=== PATIENT | male | born 1975 | race Caucasian/White ===

== ENCOUNTER 2019-08-24 15:24 | Inpatient (IN) | payer OTHER, BC, MEDICAID ==
[~2019-08-24] VITALS: Ht 180.3 cm; Wt 47.6 kg
[2019-08-24 15:31] VITALS: BP 101/72
--- NOTE | 2019-08-24 15:38 | NUR ---
PATIENT WHEELCHAIR ASSISTED TO BED 4.
--- NOTE | 2019-08-24 15:40 | NUR ---
43/M BIB FAMILY C/O BILAT LOWER EXTREMETY CELLULITIS & STOMA INFLAMMATION/REDNESS SENT TO ER FROM DR. MCGARRY OFFICE FOR ADMIT DUE TO C/O BILAT LOWER EXTREMETY CELLULITIS & STOMA INFLAMMATION/REDNESS. PER PT, HE JUST HAD A NEW STOMA PLACED 08/08/19 AND PT WAS TOLD BY DR KNOTT THAT IT IS INFECTED. PT DENIES FEVER/N/V. REDNESS NOTED AROUND STOMA. ACTUAL STOMA IS COVERED WITH A DRESSING AT THIS TIME. HX: CELLULITIS, CHRONS DISEASE
[2019-08-24] MEDS ORDERED: cefTRIAXone 1,000 MG in DEXT 5% MINI-BAG PLUS 50 ML IV ONE (15:45)
[2019-08-24] MEDS ORDERED: cefTRIAXone 1,000 MG VIAL ONE (15:58)
[2019-08-24] MEDS: NACL 0.9% 1,000 ML IV SCH ×2 (16:19→17:33)
[2019-08-24] MEDS ORDERED: fentaNYL 0.05 MG/ML VIAL IVP ONE (16:30)
[2019-08-24 16:40] LABS: BASOPHILS % (AUTO) 0.1 % (0.0-2.0); HEMATOCRIT 31.9 % (36-52); HEMOGLOBIN 10.3 g/dL (12.0-18.0); LYMPHOCYTES # (AUTO) 0.2 K/uL (2.0-11.5); LYMPHOCYTES % (AUTO) 3.2 % (20.5-51.1); MEAN CORPUSCULAR HEMOGLOBIN 29 pg (27-31); MEAN CORPUSCULAR HGB CONC 32 g/dL (33-37); MEAN CORPUSCULAR VOLUME 89.2 fL (80-94); MONOCYTES # (AUTO) 0.2 K/uL (0.8-1.0); MONOCYTES % (AUTO) 3.1 % (1.7-9.3); NEUTROPHILS % (AUTO) 93.6 % (42.2-75.2); PLATELET COUNT (AUTO) 563 K/uL (140-450); RED BLOOD CELL COUNT(AUTO) 3.58 MIL/uL (4.20-6.10); WHITE BLOOD COUNT (AUTO) 5.4 K/uL (4.8-10.8)
[2019-08-24 17:10] LABS: ANION GAP 13.5 (8-16); CARBON DIOXIDE 26.5 mmol/L (21-32); CREATININE 0.4 mg/dL (0.7-1.3)
[2019-08-24 17:17] LABS: ALBUMIN 2.3 g/dL (3.4-5.0); TOTAL BILIRUBIN 0.4 mg/dL (0.0-1.0)
--- NOTE | 2019-08-24 17:32 | NUR ---
PT CAN'T PROVIDE URINE AT THIS TIME.
[2019-08-24] MEDS ORDERED: MORPHINE SULFATE 2 MG/ML SYR IVP PRN (17:35)
[2019-08-24] MEDS ORDERED: ACETAMINOPHEN 325 MG TAB PO PRN (17:35)
[2019-08-24] MEDS ORDERED: ONDANSETRON 4 MG/2 ML VIAL IM/IVP PRN (17:35)
[2019-08-24] MEDS ORDERED: DOCUSATE SODIUM 100 MG GELCAP PO PRN (17:35)
[2019-08-24] MEDS ORDERED: HYDROcodone/APAP 5/325 MG 1 TAB TAB PO PRN (17:35)
[2019-08-24] MEDS ORDERED: MAGN400S60 PO (18:04)
[2019-08-24 18:05] LABS: MAGNESIUM 1.7 mg/dL (1.8-2.4); PHOSPHORUS 2.3 mg/dL (2.5-4.9); THYROID STIMULATING HORMONE 1.56 uIU/mL (0.34-3.74)
[2019-08-24] MEDS ORDERED: SPIR25TA PO (18:06)
[2019-08-24] MEDS ORDERED: CITA40TA5 PO (18:07)
[2019-08-24] MEDS ORDERED: OSC500 PO (18:08)
[2019-08-24] MEDS ORDERED: FAMO-90 PO (18:09)
[2019-08-24] MEDS ORDERED: SUCR1TAB35 PO (18:10)
[2019-08-24] MEDS ORDERED: APIX5TAB PO (18:10)
[2019-08-24] MEDS ORDERED: ASCO500T45 PO (18:11)
[2019-08-24] MEDS ORDERED: LORA-476 PO (18:12)
[2019-08-24] MEDS ORDERED: MULT-153 PO (18:13)
[2019-08-24 18:19] LABS: PROTHROMBIN TIME 10.3 secs (10.8-13.4)
--- NOTE | 2019-08-24 18:25 | NUR ---
Patient will be admitted to care of DR MASON. Admited to TELE. Will go to room 105B. Belongings list completed. Report to SHOAIB CHOW.
--- NOTE | 2019-08-24 18:30 | NUR ---
RECEIVED PT FROM ED NURSE VITOR. PT IS AWAKE AND ALERT, C/O PAIN IN HIS BLE'S. PT'S BLE'S ARE NOTED TO BE INFLAMED AND SCARRED. COLOSTOMY NOTED ON THE L ABD, WITH LARGE AREA OF REDNESS AROUND IT. PT IS ON ROOM AIR. IV SITE NOTED ON THE L FA, 20 G. PATENT AND INTACT. MRSA SWAB TAKEN. VS ARE: BP 113/82, HR 90, O2 100%, TEMP 97.5, RR 20.
--- NOTE | 2019-08-24 18:40 | NUR ---
ADMINISTERED PRN DOSE OF IV MORPHINE FOR 9/10 BLE PAIN. NS IVF IS INFUSING PER MD ORDER.
[2019-08-24 19:15] VITALS: BP 113/82
--- NOTE | 2019-08-24 19:15 | NUR ---
ENDORSED PT TO VEGETABLE SORTER NURSE IN STABLE CONDITION.
--- NOTE | 2019-08-24 19:30 | NUR ---
RECEIVED BEDSIDE REPORT FROM AM SHIFT RN FOR PT'S CONTINUITY OF CARE. PT IS AAOX4, LYING DOWN RESTING, WITH NO SIGNS OF DISTRESS, PT WAS GIVEN PAIN MEDICATION AT 1837. PT IS ON ROOM AIR, ON WEEKEND ANCHOR, HAS LEFT FA 20G NS AT 60ML/HR. EXPLAINED TO PT THE PUBLIC FINANCE SPECIALIST ROUTINE, PT VERBALIZED UNDERSTANDING. SAFETY PRECAUTION IN PLACE. WILL MONITOR PT THROUGHOUT SHIFT.
[2019-08-24] MEDS: metroNIDAZOLE 500 MG/NS PREMIX 100 ML IV SCH (21:13)
--- NOTE | 2019-08-24 21:13 | NUR ---
HUNG IV ABX ORDERED. PT'S NEEDS MET AT THIS TIME.
[2019-08-24] MEDS ORDERED: HYDROmorphone 1 MG/ML AMP IVP SCH (21:30)
--- NOTE | 2019-08-24 21:33 | NUR ---
PT REQUESTED FOR DILAUDID FOR PAIN MEDICATION, NOTIFIED MD FOR ORDER. ADMINISTERED IVP ONCE PAIN MEDICATION LOUISE PO NEUTRA PHIS ORDERED. PT TEACHING GIVEN RE: MEDICATIONS. PT VERBALIZED UNDERSTANDING. WILL CONTINUE TO MONITOR PT.
[2019-08-24] MEDS ORDERED: SODIUM PHOS / POTASSIUM PHOS 1 PKT PDR PO SCH (22:00)
[2019-08-24 23:34] LABS: BARBITURATE, URINE NEG. ng/ml (NEG <=200); BENZODIAZEPINE, URINE NEG. ng/mL (NEG <=200); CANNABINOID, URINE NEG. ng/mL (NEG <=50); COCAINE, URINE NEG. ng/mL (NEG <=300); OPIATE, URINE NEG. ng/mL (NEG <=2000); PHENCYCLIDINE SCREEN,URINE NEG. ng/mL (NEG <=25)
[2019-08-25] VITALS: BP 104/80
[2019-08-25 00:09] LABS: APPEARANCE,URINE CLEAR (CLEAR); BILIRUBIN,URINE NEGATIVE (NEGATIVE); BLOOD, URINE NEGATIVE (NEGATIVE); COLOR,URINE YELLOW (YELLOW); LEUKOCYTE ESTERASE ,URINE NEGATIVE (NEGATIVE); NITRITE, URINE NEGATIVE (NEGATIVE); UGLUCOSE NEGATIVE (NEGATIVE)
[2019-08-25] MEDS: MORPHINE SULFATE 4 MG/ML SYR IVP PRN ×5 (01:07→23:22)
--- NOTE | 2019-08-25 01:07 | NUR ---
VS CHECKED AND CHARTED. PT C/O PAIN 04/01. ADMINISTERED PRN PAIN MEDICATION ORDERED. PT TEACHING GIVEN, AND RECOMMENDED TO USE NON-PHARMACOLOGICAL TECHNIQUES FOR PAIN RELIEF. WILL CONTINUE TO MONITOR PT.
--- NOTE | 2019-08-25 03:00 | NUR ---
ENDORSED PT TO ANOTHER RN FOR PT'S CONTINUITY OF CARE. PT IS CURRENTLY ASLEEP WITH NO SIGNS OF DISTRESS.
--- NOTE | 2019-08-25 03:15 | NUR ---
RECEIVED PT FROM MARTY RN PT IS AAOX4 S/P COLOSTOMY F AND COLON RESECTION FOR CROHNS DISEASE LAS AUGUST 08/2019 PT HAS CELLULITIS ON ABD AND STOMA,SURGICAL STRIPS INTACT INITIAL ASSESSMENT DONE, IV ON LEFT FA INFUSING WELL
--- NOTE | 2019-08-25 05:00 | NUR ---
SPONGE BATH GIVEN LINEN CHANGED, COLOSTOMY BAG CHANGED.
[2019-08-25] MEDS: metroNIDAZOLE 500 MG/NS PREMIX 100 ML IV SCH ×3 (05:19→20:11)
[2019-08-25] MEDS: NACL 0.9% 1,000 ML IV SCH ×2 (06:58→10:34)
[2019-08-25 07:04] LABS: HEMATOCRIT 30.7 % (36-52); MEAN CORPUSCULAR HEMOGLOBIN 29 pg (27-31); MEAN CORPUSCULAR HGB CONC 33 g/dL (33-37); MEAN CORPUSCULAR VOLUME 88.4 fL (80-94); PLATELET COUNT (AUTO) 597 K/uL (140-450); RED BLOOD CELL COUNT(AUTO) 3.47 MIL/uL (4.20-6.10); RED CELL DISTRIBUTION WIDTH 16.7 % (11.6-13.7); WHITE BLOOD COUNT (AUTO) 4.9 K/uL (4.8-10.8)
[2019-08-25 07:14] LABS: MAGNESIUM 1.7 mg/dL (1.8-2.4); PHOSPHORUS 2.7 mg/dL (2.5-4.9)
[2019-08-25 07:24] LABS: CREATININE 0.4 mg/dL (0.7-1.3); POTASSIUM 3.7 mmol/L (3.5-5.1)
--- NOTE | 2019-08-25 07:30 | NUR ---
RECEIVED PT AAOX4. NO SOB NOTED. NO C/O PAIN AT THIS TIME. IV TO LT FOREARM PATENT AND INTACT. CHEST CLEAR. DIMINISHED AIR ENTRY TO THE BASES. ABDOMEN SOFT, BOWEL SOUNDS PRESENT. WITH SURGICAL INCISION ON ABDOMEN, STERI STRIPS CLEAN DRY AND INTACT, WOUND OPEN TO AIR. LEFT ABDOMEN COLOSTOMY DRAINING WITH MODERATE SOFT STOOLS. BLE SLIGHTLY SWOLLEN, ELEVATED WITH PILLOW. INSTRUCTED PT TO CALL FOR ASSISTANCE, CALL LIGHT WITHIN REACH, VERBALIZED UNDERSTANDING.
[2019-08-25 07:31] LABS: CHOL/HDL RATIO 2.6 (1-4.5)
--- NOTE | 2019-08-25 07:41 | NUR ---
PT IS ENDORSED TODAY SHIFT NURSE FOR CONTINUE OF CARE
[2019-08-25 07:48] LABS: LYMPHOCYTES % (MANUAL) 27 % (20-46); MONOCYTES % (MANUAL) 9 % (5-12)
[2019-08-25 08:00] VITALS: BP 111/72
[2019-08-25 08:28] LABS: ANION GAP 12.8 (8-16); CARBON DIOXIDE 23.9 mmol/L (21-32)
--- NOTE | 2019-08-25 08:33 | NUR ---
PATIENT HAS BEEN SCREENED AND CATEGORIZED HIGH NUTRITION RISK. PATIENT WILL BE SEEN WITHIN 1-2 DAYS OF ADMISSION. 08/25/19-08/26/[address]
--- NOTE | 2019-08-25 11:40 | NUR ---
WOUND CARE EVALUATION NOTES: REASON FOR EVALUATION: ABDOMINAL COLOSTOMY SKIN EROSIONS SKIN ASSESSMENT DONE ON WITH THIS 43 Y/O MALE PATIENT ADMITTED TO [facility] WITH INITIAL DIAGNOSIS OF BLE CELLULITIS. PAST MEDICAL HX RECENT EXPLORATORY LAPAROTOMY, DECOMPRESSION OF BOWEL WITH PLACEMENT OF DIVERTING LOOP OSTOMY. ALL ABOVE INFORMATION WAS OBTAINED FROM THE ADMISSION H&P. AND PT. PT IS AAX4. DR. CONI DODSON AND DR. FAULKNER AT BED SIDE. DURING ASSESSMENT. POC DISCUSSED. WOUND AND COLOSTOMY CARE INSTRUCTIONS GIVEN WITH DEMONSTRATION. PT. VERBALIZES UNDERSTANDING. PLAN OF CARE DISCUSSED WITH PRIMARY RN INTEGUMENTARY: -BLE ERYTHEMA, WITH XEROSIS, SKIN INTACT, DRY SCABS TO LEFT KNEE -MID ABDOMINAL HEALED SCARS -LLQ ABDOMINAL COLOSTOMY, RETRACTED STOMA WITH 25MM IN DIAMETER, AMY-STOMA SKIN RED WITH MULTIPLE EROSIONS, SURROUNDING SKIN CONTACT DERMATITIS EXTEND TO GROIN AND HIP AREA RECOMMENDATIONS: -APPLY HYDRAGUARD TO BLE, LEFT GROIN AND HIP AREA BID AND LEAVE IT OPEN TO AIR -PAIN MID ABDOMINAL SCARS WITH BETADINE BID AND LEAVE IT OPEN TO AIR -OSTOMY CARE RECOMMENDATIONS: -HOME HEALTH TO FOLLOW UPON DISCHARGED -FOLLOW UP WITH SURGEON IN 7-10 DAYS UPON DISCHARGE -OSTOMY CARE PER PROTOCOL AND DURING OSTOMY CARE PLEASE FOLLOW INSTRUCTION BELOW: -CHECK AMY STOMA SKIN CONDITION EVERY TIME WAFER CHANGED Q 5 DAYS AND PRN IF DISPLACED -DUST STOMA POWDER TO EROSIONS AREA AND APPLY SKIN PREP TO AMY-OSTOMY SKIN - USE 2- PIECES JAMES OSTOMY DEVICES WITH 1 (25MM), CUT TO FIT THE STOMA EXACTLY. NO SKIN SHOWING. APPLY PRE-CUT WAFER TO OSTOMY AND ATTACHED POUCH TO WAFER. CHANGE WAFER Q5 DAYS. -EMPTY AND RINSE POUCH WHEN IT IS 1/3 FULL. CHANGE POUCH Q5 DAYS AND PRN IF LEAK -MAY DISCHARGE HOME WITH SUPPLIES FOLLOWIN COMPLETE 2 PIECES POUCH CHANGES 1 TUBE OF STOMA ADHESIVE PASTE 1 BOTTLE OF STOMA ADHESIVE POWDER 4 SKIN PREP ABOVE INSTRUCTION EXPLAINED AND DEMONSTRATED TO PT. PT. VERBALIZES UNDERSTANDING. PRIMARY RN CONTINUE TEACHING COLOSTOMY CARE. RECOMMENDATIONS DISCUSSED WITH PRIMARY RN. PLEASE CONTACT WOUND CARE NURSE FOR ANY QUESTIONS AND CHANGES IN SKIN CONDITION.
[2019-08-25] MEDS: HYDROmorphone 1 MG/ML AMP IVP SCH ×2 (12:59→20:12)
[2019-08-25] MEDS: GAUZE TP SCH (13:00)
[2019-08-25] MEDS: HYDRAGUARD CREAM TP SCH (13:00)
--- NOTE | 2019-08-25 13:39 | NUR ---
DISCHARGE PLANNIN43 YEAR OLD MALE PATIENT FROM HOME, WHO CAME IN DUE TO PAIN IN THE FEET FOR 8 DAYS. PAST MEDICAL AND SURGICAL HISTORY INCLUDE CROHN DISEASE AND SUBTOTAL COLECTOMY WITH COLOSTOMY, SUBSEQUENT LYSIS OF ADHESION IN JUL 2019. INITIAL DIAGNOSIS OF STOMA INFECTION AND LOWER LEG CELLULITIS. CURRENT LABS INCLUDE WBC 4.9, H/H 10.0/30.7, NA/K 134/3.7 AND MAG 1.7. URINE AND BLOOD C/S PENDING. CXR SHOWED MILD PATCHY OPACITY OF THE RIGHT LUNG. KUB SHOWED ILEUS OR LARGE BOWEL OBSTRUCTION. ON ROCEPHIN. SURGICAL CONSULT WITH DR. KNOTT. DC PLAN PENDING ON PATIENT'S RESPONSE TO TREATMENT. Addendum: 08/26/19 at 0849 by Brooklynn Roman CM DC PLANNING SEEN BY SURGEON DR DODSON ,RECOMMENDED NO FURTHER SURGICAL NEEDS , WILL NEED REFERRAL TO GI OUTPATIENT. CONTINUE IVF AND ROCEPHIN AND SEEN BY [employer] CLERK CONTINUE SOFT DIET TOLERATED. DC PLAN PATIENT SHOULD BE ABLE TO CONTINUE WITH SOFT LOW FIBER DIET AND ENSURE BID UPON DISCHARGE AND WOUND CARE RECOMMENDATIONS. CM TO FOLLOW Addendum: 08/26/19 at 1120 by Brooklynn Roman CM DC PLANNING: I RECEIVED A CALL FROM PT'S MOTHER RACHEL ADDRESSED HER CONCERN THAT SHE IS UNABLE TO TAKE CARE OF HIM AT THIS TIME AND PREFERRED HIM TO GO TO SNF FOR FURTHER THERAPY, AFTER HE GETS HIS STRENGTH BACK WOULD LIKE TO TAKE HIM BACK TO HER HOUSE. NOTIFIED DR VAZQUEZ HER CONCERN AND PROVIDE HER NUMBER [phone] . PER RACHEL SHE WANTED HER SON TO GO TO [facility] WHERE HE WAS THERE BEFORE , CLOSEST TO HER HOME AND ABLE TO VISIT HIM FREQUENTLY AND WAS SATISFIED WITH THEIR CARE. THE AD[address] [id number] . PHONE # [phone] . CM TO FOLLOW Addendum: 08/26/19 at 1325 by Brooklynn Roman CM DC PLANNING FAXED ALL THE PAPERWORK TO [phone]. CM TO FOLLOW Addendum: 08/28/19 at 1648 by Kerrie Bright LATE ENTRY: RECEIVED AN ORDER FOR DC TO SNF TODAY FOR IV ANTIBIOTIC. CONTACTED MANJULA HILL AT [phone] REGARDING DC PLAN. SHE PROVIDED ME WITH LIST OF SNF'S TO SEND REFERRALS. REFERRAL SENT TO [facility], [facility], [place], [facility], [facility], [facility], , [facility] AND [facility]. WILL FOLLOW UP. Addendum: 08/28/19 at 1722 by Kerrie Bright CM RECEIVED A CALL FROM [facility], SHE STATED THE FACILITY SHOULD BE CONTRACTED WITH [facility]. I ASKED IF [facility] IS CONTRACTED WITH THEM. SHE STATED TO HAVE THE FACILITY CALL HER AND SHE WILL PROVIDE AUTHORIZATION. CONTACTED [facility] BRITO, PER NICOLAS INTAKE THEY ARE ABLE TO TAKE THE PATIENT AND WILL GO TO ROOM [address] BANKS. SHE ALSO STATED CAN SET UP TRANSPORT WITH [facility] BILLED TO THEM. CONTACTED [facility] AT [phone], ABLE TO SPEAK TO GENO. PLATE GRAINER IS BETWEEN 1830 TO 1930. PRIMARY RN RUSSELL AND DR. GO MADE AWARE.
--- NOTE | 2019-08-25 13:48 | NUR ---
UMA Assessment/Discharge Plan Basic Screen: Yes Name: Ashley Jones Home Relationship: mother Pre-Admission Living Arrangements: Lives with Other Other: Ashley Jones Prior ADL Needs Assistance Current Home Health Name/Tel: patient does not recall name of home health company Current Name/Tel: N/A Current Hospice Name/Tel: N/A Current Dialysis Name/Tel: N/A Healthcare Decision Maker: Patient Advance Directive No Information Taught: Advance Directive Person Taught: Patient Teaching Tools: Computer Generated Print Verbal Factors Affecting Learning: None Participation Level: Active Evaluation: Gestures Understanding Verbalizes Understanding Educator: UMA Littlejohn Discipline: Case Mgt/Social Svcs Tentative Discharge Plan Summary: Patient is a 43 year old male admitted for stoma infection and lower leg cellulitis. I met with patient at bedside. Patient alert and oriented x4. Patient lives alone, however, he has been staying at his mother Ashley's home after his surgery. He follows up with his pcp regularly and does not have any difficulty filling his prescriptions at pharmacy. He does not recall name of [employer] [facility] that has been providing services for him. He has a hx of depression. He denied SI and HI. He drives himself to pcp's office. He denied alcohol/substance abuse. Venetian Blind Machine Operator and/or Yard Coupler will follow up as needed. Signature: UMA Littlejohn Date: Aug 25, 2019
--- NOTE | 2019-08-25 15:04 | NUR ---
08/25/19 RD INITIAL ASSESSMENT COMPLETED PLEASE REFER TO NUTRITION ASSESSMENT UNDER CARE ACTIVITY FOR ESTIMATED NUTRITIONAL NEEDS. 1. CONTINUE SOFT DIET TOLERATED 2. RECOMMENDED ENSURE BID, MULTIVITAMIN DAILY, IRON SUPPLEMENTATION AND VITAMIN C 3. IF PO INTAKE IS <50% CONSIDER PARENTERAL NUTRITION 4. RD TO FOLLOW-UP 2-3 DAYS, HIGH RISK [address] RD
[2019-08-25 16:00] VITALS: BP 105/72
[2019-08-25] MEDS ORDERED: MAGNESIUM OXIDE 400 MG TAB PO SCH (17:00)
--- NOTE | 2019-08-25 17:55 | NUR ---
pt eating dinner, on soft diet, tolerated well. no n&v noted.
--- NOTE | 2019-08-25 19:15 | NUR ---
RECEIVED BEDSIDE REPORT FROM AM SHIFT RN FOR PT'S CONTINUITY OF CARE. PT IS AAOX4, PT C/O 06/01 PAIN, WILL MEDICATE. PT IS ON ROOM AIR, ON PARKING ASSISTANT, HAS LEFT FA 20G NS AT 60ML/HR. EXPLAINED TO PT THE IT PROFESSIONAL ROUTINE, PT VERBALIZED UNDERSTANDING. SAFETY PRECAUTION IN PLACE. BED IN LOW POSITION, CALL LIGHT WITHIN REACH. WILL MONITOR PT THROUGHOUT SHIFT.
--- NOTE | 2019-08-25 19:25 | NUR ---
PT RESTING. NO SOB NOTED. NO COMPLAINTS MADE. ENDORSED TO NEXT SHIFT NURSE FOR CONTINUITY OF CARE.
[2019-08-25] MEDS: APIXABAN 2.5 MG TAB PO SCH (20:21)
--- NOTE | 2019-08-25 20:21 | NUR ---
GIVEN FLAGYL, DILAUDID, ELIQUIS, AND HEPARIN MD ORDERED, PT TOLERATED WELL.
--- NOTE | 2019-08-25 23:22 | NUR ---
PT C/O ABD PAIN 10/10, GIVEN MORPHINE MD ORDERED, PT TOLERATED WELL.
[2019-08-26] VITALS: BP 106/72
[2019-08-26] MEDS: HYDRAGUARD CREAM TP SCH ×2 (01:42→13:08)
--- NOTE | 2019-08-26 01:43 | NUR ---
APPLIED HYDRAGUARD MD ORDERED, PT TOLERATED WELL.
[2019-08-26] MEDS: metroNIDAZOLE 500 MG/NS PREMIX 100 ML IV SCH ×3 (04:07→20:54)
[2019-08-26] MEDS: HYDROmorphone 1 MG/ML AMP IVP SCH (04:07)
--- NOTE | 2019-08-26 04:07 | NUR ---
PT C/O 06/01 ABD PIN, GIVEN DILAUDID AND FLAGYL MD ORDERED. PT TOLERATED WELL.
[2019-08-26 05:49] LABS: BASOPHILS % (AUTO) 0.3 % (0.0-2.0); EOSINOPHILS # (AUTO) 0.1 K/uL (0-0.4); EOSINOPHILS % (AUTO) 1.8 % (0.0-4.0); HEMOGLOBIN 9.7 g/dL (12.0-18.0); LYMPHOCYTES # (AUTO) 0.6 K/uL (2.0-11.5); LYMPHOCYTES % (AUTO) 15.5 % (20.5-51.1); MEAN CORPUSCULAR HEMOGLOBIN 29 pg (27-31); MEAN CORPUSCULAR HGB CONC 33 g/dL (33-37); MEAN CORPUSCULAR VOLUME 88.8 fL (80-94); MONOCYTES # (AUTO) 0.7 K/uL (0.8-1.0); MONOCYTES % (AUTO) 20.1 % (1.7-9.3); NEUTROPHILS # (AUTO) 2.3 K/uL (1.8-7.7); NEUTROPHILS % (AUTO) 62.3 % (42.2-75.2); PLATELET COUNT (AUTO) 515 K/uL (140-450); RED BLOOD CELL COUNT(AUTO) 3.38 MIL/uL (4.20-6.10); RED CELL DISTRIBUTION WIDTH 16.6 % (11.6-13.7); WHITE BLOOD COUNT (AUTO) 3.7 K/uL (4.8-10.8)
[2019-08-26 06:16] LABS: ANION GAP 7.4 (8-16); CARBON DIOXIDE 31.5 mmol/L (21-32); CREATININE 0.6 mg/dL (0.7-1.3); POTASSIUM 3.9 mmol/L (3.5-5.1)
[2019-08-26 06:18] LABS: MAGNESIUM 1.4 mg/dL (1.8-2.4)
--- NOTE | 2019-08-26 06:55 | NUR ---
PT LYING ON BED. NO ACUTE DISTRESS NOTED.
--- NOTE | 2019-08-26 07:05 | NUR ---
Received report from PM nurse. Pt is asleep, room air, NS running at 60 mls/hr, bed at lowest position, call light within reach.
[2019-08-26] MEDS: FERROUS SULFATE 325 MG TABEC PO SCH (07:30)
[2019-08-26] MEDS: MORPHINE SULFATE 4 MG/ML SYR IVP PRN ×4 (07:31→20:55)
--- NOTE | 2019-08-26 07:31 | NUR ---
Pt complained of 10/10 abdominal pain. PRN morphine administered. Will reassess.
[2019-08-26 08:00] VITALS: BP 106/73
[2019-08-26] MEDS ORDERED: FERROUS SULFATE 325 MG TABEC PO SCH (08:00)
--- NOTE | 2019-08-26 08:00 | NUR ---
Pt's colostomy bag overfilled with air and stool. Apply new colostomy bag. Provided sponge bath, changed linens, bed at lowest position, call light within reach.
--- NOTE | 2019-08-26 08:20 | NUR ---
Pt stated his pain is more tolerable at this time, but still at a 9/10. Will continue to monitor.
[2019-08-26] MEDS: CITALOPRAM 20 MG TAB PO SCH (09:02)
[2019-08-26] MEDS: MULTIVITAMIN/MINERALS 1 TAB PO SCH (09:03)
[2019-08-26] MEDS: ASCORBIC ACID 500 MG TAB PO SCH (09:03)
[2019-08-26] MEDS: APIXABAN 2.5 MG TAB PO SCH ×2 (09:04→21:01)
[2019-08-26] MEDS: predniSONE 10 MG TAB PO SCH (09:04)
[2019-08-26 09:06] LABS: FOLIC ACID 17.4 ng/mL (>3.0)
--- NOTE | 2019-08-26 11:59 | NUR ---
Pt is complaining of 10/10 abdominal pain. PRN morphine is administered. Will reassess within an hour.
--- NOTE | 2019-08-26 12:45 | NUR ---
Pt is asleep, FLACC 0. Will continue to monitor.
[2019-08-26] MEDS: NACL 0.9% 1,000 ML IV SCH (12:59)
[2019-08-26] MEDS: GAUZE TP SCH (13:08)
[2019-08-26] MEDS ORDERED: MAG SULF 2000 MG/WATER PREMIX 50 ML IV SCH (14:00)
--- NOTE | 2019-08-26 15:00 | NUR ---
Handoff report given to Fabiola CHOW. Pt resting in bed, no signs of distress.
--- NOTE | 2019-08-26 15:01 | NUR ---
RECEIVE REPORT FROM CLAUDINE GARDUNO. PT IS RESTING IN BED, NO SIGNS OF DISTRESS, UPDATE WHITE BOARD WITH NAME, SAFETY MEASURES IN PLACE
[2019-08-26 16:00] VITALS: BP 103/73
--- NOTE | 2019-08-26 16:32 | NUR ---
MEDICATED PT WITH MORPHINE FOR SEVER ABDOMEN 05/02, CRAMPING. EDUCATION GIVEN, PT VOCALIZE UNDERSTANDING. CALL LIGHT WITHIN REACH.
--- NOTE | 2019-08-26 16:39 | NUR ---
PT HAD 100ML OF STOOL REMOVED FROM COLOSTOMY BAG.
--- NOTE | 2019-08-26 16:40 | NUR ---
CHANGED COLOSTOMY BAG IT WAS LEAKING, PT WOUND SITE IS PINK, CLEANED THE AREA. PT TOLERATE CHANGE WELL. PT IS STABLE, CALL LIGHT WITHIN REACH.
--- NOTE | 2019-08-26 17:58 | NUR ---
PT SITTING UP IN BED, EATING, PT IS STABLE, NO SIGNS DISTRESS NOTED, CALL LIGHT WITHIN REACH.
--- NOTE | 2019-08-26 19:15 | NUR ---
GAVE REPORT TO NIGHT NURSE JERRI FOR CONTINUITY OF CARE, PT IS STABLE, EMPTY COLOSTOMY OF 300 MLS OF STOOL.
--- NOTE | 2019-08-26 19:20 | NUR ---
RECEIVED FROM AM RN IN BED . COLOSTOMY BAG IN PLACE. DX. OF INFECTED STOMA AND CELLULITIS BILATERAL LOWER EXTREMITIES. ABLE TO VERBALIZE SIMPLE NEEDS IN TRISTANIAN. CARE PLANS FOR THE NIGHT DISCUSSED WITH HIM AND RE-ORIENTED TO CALL LIGHT USE FOR HELP . NO SOB. DENIES PAIN AT THIS TIME. BED ALARM ON.
[2019-08-26 20:44] VITALS: BP 109/77
--- NOTE | 2019-08-26 22:30 | NUR ---
SLEEPING WELL. NO SOB. CALL LIGHT WITH IN REACH.
--- NOTE | 2019-08-27 00:48 | NUR ---
SLEEPING WELL POST MORPHINE MEDICATION GIVEN EARLIER IN SHIFT. ABLE TO VERBALIZE NEEDS WELL. PT. VITAL SIGNS TAKEN AT THIS TIME RT REQUESTED FOR MORPHINE IVP . WITH FRESH ABDOMINAL SCAR /SURGERY. CALL LIGHT WITH IN REACH AND ABLE TO USE IT.
[2019-08-27] MEDS: HYDRAGUARD CREAM TP SCH ×2 (00:51→13:15)
[2019-08-27] MEDS: MORPHINE SULFATE 4 MG/ML SYR IVP PRN ×6 (00:55→22:03)
[2019-08-27 01:06] VITALS: BP 106/76
--- NOTE | 2019-08-27 04:00 | NUR ---
PT. AWAKE AND REQUESTED FOR NEW COLOSTOMY BAG. ABLE TO VERBALIZE NEEDS WELL. KEPT CLEAN , DRY AND COMFORTABLE. NO ADVERSE REACTIONS NOTED FROM IV ABT'S ADMINISTERED.
[2019-08-27] MEDS: NACL 0.9% 1,000 ML IV SCH ×2 (05:50→21:28)
[2019-08-27] MEDS: metroNIDAZOLE 500 MG/NS PREMIX 100 ML IV SCH ×3 (06:02→20:19)
--- NOTE | 2019-08-27 06:55 | NUR ---
SLEEPING WELL MOST OF THE SHIFT. WAKES UP WHEN HE FEELS PAIN AND NEEDS MORPHINE IVP RT PAIN. COLOSTOMY BAG CHANGED 2 X THIS SHIFT . PT. ROM X 4. CLEAR SPEECH AND ABLE TO VERBALIZE NEEDS WELL. ABLE TO TURN SELF INDEPENDENTLY. ABLE TO USE CALL LIGHT FOR HELP. NEEDS MET THIS SHIFT. NO COMPLAINTS DONE.
[2019-08-27 07:12] LABS: BASOPHILS # (AUTO) 0.1 K/uL (0.00-0.22); BASOPHILS % (AUTO) 1.3 % (0.0-2.0); EOSINOPHILS # (AUTO) 0.1 K/uL (0-0.4); EOSINOPHILS % (AUTO) 2.3 % (0.0-4.0); HEMATOCRIT 30.9 % (36-52); LYMPHOCYTES # (AUTO) 0.9 K/uL (2.0-11.5); MEAN CORPUSCULAR HEMOGLOBIN 29 pg (27-31); MEAN CORPUSCULAR HGB CONC 32 g/dL (33-37); MEAN CORPUSCULAR VOLUME 88.6 fL (80-94); MONOCYTES # (AUTO) 0.7 K/uL (0.8-1.0); NEUTROPHILS # (AUTO) 2.3 K/uL (1.8-7.7); PLATELET COUNT (AUTO) 506 K/uL (140-450); RED BLOOD CELL COUNT(AUTO) 3.49 MIL/uL (4.20-6.10); RED CELL DISTRIBUTION WIDTH 16.6 % (11.6-13.7)
[2019-08-27 07:33] LABS: ANION GAP 11.2 (8-16); CARBON DIOXIDE 25.7 mmol/L (21-32); CREATININE 0.5 mg/dL (0.7-1.3); POTASSIUM 3.9 mmol/L (3.5-5.1)
[2019-08-27 07:40] LABS: MAGNESIUM 1.8 mg/dL (1.8-2.4); PHOSPHORUS 2.5 mg/dL (2.5-4.9)
[2019-08-27 07:55] LABS: LYMPHOCYTES % (AUTO) 22.2 % (20.5-51.1); MONOCYTES % (AUTO) 17.5 % (1.7-9.3); NEUTROPHILS % (AUTO) 56.7 % (42.2-75.2)
[2019-08-27 08:00] VITALS: BP_SYST 110; BP_DIAS 75; BP_DIAS 76
[2019-08-27] MEDS: FERROUS SULFATE 325 MG TABEC PO SCH (08:19)
[2019-08-27] MEDS: predniSONE 10 MG TAB PO SCH (08:20)
[2019-08-27] MEDS: ASCORBIC ACID 500 MG TAB PO SCH (08:20)
[2019-08-27] MEDS: CITALOPRAM 20 MG TAB PO SCH (08:20)
[2019-08-27] MEDS: APIXABAN 2.5 MG TAB PO SCH ×2 (08:20→20:23)
[2019-08-27] MEDS: MULTIVITAMIN/MINERALS 1 TAB PO SCH (08:20)
[2019-08-27] MEDS ORDERED: Z-GUARD PASTE TP ONE (11:30)
--- NOTE | 2019-08-27 11:46 | NUR ---
Colostomy bag leaking. Skin care provided & colostomy bag replaced & attached to drainage bag. Wound care provided. Pt denies any pain at this time. Will cont to monitor.
[2019-08-27] MEDS: Z-GUARD PASTE TP SCH (13:15)
[2019-08-27] MEDS: GAUZE TP SCH (13:15)
--- NOTE | 2019-08-27 13:30 | NUR ---
Pt in high fowlers in bed, eating dinner. No c/o discomfort, no signs of distress. Respirations even & nonlabored. Colostomy bag intact & draining liquid brown stool to drainage bag. No leaking noted.
--- NOTE | 2019-08-27 15:30 | NUR ---
Pt asleep in bed, respirations even & nonlabored in room air, no signs of distress. Call light within reach.
[2019-08-27 16:00] VITALS: BP 110/75
--- NOTE | 2019-08-27 19:15 | NUR ---
Report given to pm nurse Bharti.
--- NOTE | 2019-08-27 19:16 | NUR ---
RECEIVED REPORT FROM AM NURSE SHAAN. PATIENT ALERT AND ORIENTED X4. NO APPARENT DISTRESS NOTED. INTRODUCED SELF AND UPDATED BOARD. WITH PIV ON LEFT FOREARM 20G RUNNING IVF. WITH COLOSTOMY NOTED CONNECTED TO DRAINAGE BAG. BED ON LOW POSITION. BED ALARM ON. WILL CONTINUE TO MONITOR.
--- NOTE | 2019-08-27 20:00 | NUR ---
NOTED WITH LEAKING COLOSTOMY BAG. CHANGED PADS AND COLOSTOMY BAG. REPOSITIONED FOR COMFORT. WILL CONTINUE TO MONITOR.
--- NOTE | 2019-08-27 22:00 | NUR ---
NOTED COLOSTOMY BAG LEAKING. TURNED, REPOSITIONED AND CHANGED COLOSTOMY BAG. WILL CONTINUE TO MONITOR.
--- NOTE | 2019-08-27 23:47 | NUR ---
PATIENT ASLEEP IN BED. NO APPARENT DISTRESS NOTED. VISIBLE CHEST RISE AND FALL NOTED. WILL CONTINUE TO MONITOR.
[2019-08-28] VITALS: BP 102/71
[2019-08-28] MEDS: HYDRAGUARD CREAM TP SCH ×2 (01:03→13:13)
--- NOTE | 2019-08-28 01:35 | NUR ---
PATIENT ASLEEP IN BED. NO APPARENT DISTRESS NOTED. VISIBLE CHEST RISE AND FALL NOTED. WILL CONTINUE TO MONITOR.
[2019-08-28] MEDS: MORPHINE SULFATE 4 MG/ML SYR IVP PRN ×4 (02:58→15:48)
--- NOTE | 2019-08-28 03:20 | NUR ---
CHANGED COLOSTOMY BAG. REPOSITIONED AND TURNED FOR COMFORT. WOUND CARE DONE ORDERED. WILL CONTINUE TO MONITOR.
[2019-08-28] MEDS: metroNIDAZOLE 500 MG/NS PREMIX 100 ML IV SCH ×2 (05:03→13:12)
--- NOTE | 2019-08-28 05:15 | NUR ---
PATIENT ASLEEP IN BED. NO APPARENT DISTRESS NOTED. VISIBLE CHEST RISE AND FALL NOTED. WILL CONTINUE TO MONITOR.
[2019-08-28] MEDS ORDERED: METR250T2 PO ×3 (06:43→17:04)
[2019-08-28] MEDS ORDERED: CEPH250C16 PO (06:43)
[2019-08-28] MEDS ORDERED: PRED10TA5 PO (06:43)
--- NOTE | 2019-08-28 07:10 | NUR ---
ENDORSED TO AM SHIFT NURSE FOR CONTINUITY OF CARE.
--- NOTE | 2019-08-28 07:10 | NUR ---
RECEIVED REPORT FROM SUBJECT SCIENTIFIC RESEARCH NURSE DENNY. PT AWAKE, ORIENTED X4. IV ON LT FA 20 GA RUNNING IVF PER ORDER. RESPIRATIONS EVEN AND UNLABORED ON RA. ACTIVE BS, SOFT ABD, LBM 08/28, COLOSTOMY BAG IN PLACE EMPTY AND PATENT, STOMA IS PINK AND CLEAN. PT IS ON FALL RISK PRECAUTIONS, SAFETY MEASURES IN PLACE. REVIEWED POC WITH PT, PT VERBALIZED UNDERSTANDING.
[2019-08-28 08:00] VITALS: BP 113/69
[2019-08-28 08:20] LABS: ANION GAP 10.5 (8-16); CARBON DIOXIDE 23.4 mmol/L (21-32); CREATININE 0.4 mg/dL (0.7-1.3); POTASSIUM 3.9 mmol/L (3.5-5.1)
[2019-08-28 08:24] LABS: MAGNESIUM 1.6 mg/dL (1.8-2.4); PHOSPHORUS 2.1 mg/dL (2.5-4.9)
[2019-08-28] MEDS: FERROUS SULFATE 325 MG TABEC PO SCH (08:32)
[2019-08-28] MEDS: ASCORBIC ACID 500 MG TAB PO SCH (08:33)
[2019-08-28] MEDS: CITALOPRAM 20 MG TAB PO SCH (08:34)
[2019-08-28] MEDS: MULTIVITAMIN/MINERALS 1 TAB PO SCH (08:34)
[2019-08-28] MEDS: predniSONE 10 MG TAB PO SCH (08:34)
[2019-08-28 08:36] LABS: BASOPHILS % (AUTO) 0.7 % (0.0-2.0); EOSINOPHILS # (AUTO) 0.1 K/uL (0-0.4); EOSINOPHILS % (AUTO) 2.7 % (0.0-4.0); HEMATOCRIT 28.7 % (36-52); HEMOGLOBIN 9.3 g/dL (12.0-18.0); LYMPHOCYTES % (AUTO) 20.6 % (20.5-51.1); MEAN CORPUSCULAR HEMOGLOBIN 29 pg (27-31); MEAN CORPUSCULAR HGB CONC 33 g/dL (33-37); MEAN CORPUSCULAR VOLUME 88.3 fL (80-94); MONOCYTES # (AUTO) 0.6 K/uL (0.8-1.0); NEUTROPHILS # (AUTO) 2.9 K/uL (1.8-7.7); PLATELET COUNT (AUTO) 478 K/uL (140-450); RED BLOOD CELL COUNT(AUTO) 3.25 MIL/uL (4.20-6.10); RED CELL DISTRIBUTION WIDTH 16.6 % (11.6-13.7); WHITE BLOOD COUNT (AUTO) 4.6 K/uL (4.8-10.8)
[2019-08-28] MEDS: APIXABAN 2.5 MG TAB PO SCH (08:39)
--- NOTE | 2019-08-28 08:39 | NUR ---
ADMINISTERED MEDICATIONS PER ORDER, PT IS AWARE OF INDICATIONS AND POTENTIAL SIDE EFFECTS.
[2019-08-28] MEDS ORDERED: ROC2I IV (08:58)
[2019-08-28] MEDS ORDERED: MAG SULF 2000 MG/WATER PREMIX 50 ML IV SCH (09:30)
[2019-08-28] MEDS ORDERED: SODIUM PHOS / POTASSIUM PHOS 1 PKT PDR PO SCH (09:30)
--- NOTE | 2019-08-28 11:30 | NUR ---
PT C/O PAIN ON BILATERAL LEGS, WILL GIVE PAIN MEDICATION PER ORDER.
[2019-08-28] MEDS: GAUZE TP SCH (13:13)
[2019-08-28] MEDS: Z-GUARD PASTE TP SCH (13:13)
--- NOTE | 2019-08-28 13:20 | NUR ---
COLOSTOMY BAG CHANGED D/T LEAKING. SKIN AND AMY CARE DONE, PT TOLERATED WELL.
[2019-08-28] MEDS: NACL 0.9% 1,000 ML IV SCH (14:08)
--- NOTE | 2019-08-28 14:59 | NUR ---
PT GIVEN 2 SERVINGS OF JELLO PER REQUEST, PT HAS NO SIGNS OF DISTRESS AT THIS TIME.
[2019-08-28 16:00] VITALS: BP 103/71
--- NOTE | 2019-08-28 17:00 | NUR ---
PT HAS NO C/O PAIN AT THIS TIME. PT NOTIFIED THAT HE WILL BE TRANSFERRED TO [facility], PT IS AGREEABLE. WILL CONTINUE TO MONITOR.
--- NOTE | 2019-08-28 18:27 | NUR ---
GIVEN REPORT TO SALLY MON FROM [facility]. ALL QUESTIONS ANSWERED AND CLARIFIED.
--- NOTE | 2019-08-28 18:40 | NUR ---
PT HAS BEEN DISCHARGED. ALL PAPERWORK SIGNED, ALL QUESTIONS ANSWERED. ALL BELONGINGS IN PT POSSESSION. IV ABX TO BE CONTINUED AT SNF, IV ON LT FA 20 GA CLEAN, DRY AND INTACT. TELE MONITOR REMOVED. PT TRANSFERRED OUT OF UNIT, TAKEN BY [facility]. PT IN STABLE CONDITION.
== END 2019-08-28 18:40 | DRG 602 ==
LOC: MED 15:24 → MTU 17:38
PROVIDERS: ADMIT General Practice; ATTEND General Practice
DX: L03.116 Cellulitis of left lower limb (principal); E43 Unspecified severe protein-calorie malnutrition; K50.90 Crohn's disease, unspecified, without complications; R64 Cachexia; E87.1 Hypo-osmolality and hyponatremia; L03.115 Cellulitis of right lower limb; Z60.2 Problems related to living alone; D64.9 Anemia, unspecified; E83.39 Other disorders of phosphorus metabolism; E83.42 Hypomagnesemia; F32.9 Major depressive disorder, single episode, unspecified; Z86.711 Personal history of pulmonary embolism; Z93.3 Colostomy status; Z87.891 Personal history of nicotine dependence
CPT/HCPCS: 36415; 71045; 74018; 80048; 80053; 80305; 81003; 82550; 82607; 82728; 82746; 83036; 83540; 83605; 83735; 83880; 84100; 84134; 84436; 84443; 84484; 85025; 85045; 85610; 85730; 87040; 87070; 87081; 87086; 87186; 93005; 93925; 93970; 96365; 96375; 97112; 97161-GP; 99285; J0696; J1170; J1644; J2270; J3010; J3475; J3490; J7030; J7060; J7512; Q0092